=== PATIENT | male | born 2000 | race Caucasian/White ===

== ENCOUNTER 2024-03-07 11:13 | Emergency (ER) | payer OTHER, SELFPAY ==
[2024-03-07 11:24] VITALS: BP 164/89
--- NOTE | 2024-03-07 12:46 | ED.GENMED ---
History of Present Illness
General
Chief Complaint: Allergic Reaction
Time Seen by Provider: 03/07/24 12:46
History of Present Illness
History of Present Illness:
HPI: The patient presents with a rash. It primarily involves the torso. There is no airway compromise. There is no swelling. Mom was rather concerned about the etiology however she states he had a similar episode in the past and had negative
language specialist and dermatologic testing. He has had blood work that was unremarkable. He has had no fevers. He has had no night sweats. No tick bites.
EXAM:
GENERAL: Well appearing in no distress, there is no palpable lymphadenopathy
HEENT: Moist oral mucosa
CARDIOVASCULAR: No murmurs, normal heart rate, regular rhythm, No chest wall tenderness
PULMONARY: No respiratory distress, breath sounds are clear and equal
ABDOMEN: Soft with no peritoneal signs, no tenderness
NEUROLOGIC: Excellent strength all extremities, no coordination deficits
PSYCHIATRIC: Appropriate mental status, normal insight and judgement
EXTREMITIES: Nontender, no edema, moves all extremities equally
SKIN: There is an urticarial type of rash primarily involving the torso
TIME OF INITIAL ENCOUNTER: 1 PM
NUMBER AND COMPLEXITY OF PROBLEMS ADDRESSED AT THE ENCOUNTER
� Chronic conditions affecting care: The patient is otherwise healthy but mother reports frequent colds and fatigue (has had workup for this in the past)
� Acute Exacerbation and/or Progression of Chronic Illness:
� Differential Diagnosis includes:
AMOUNT AND/OR COMPLEXITY OF DATA TO BE REVIEWED AND ANALYZED
� I performed an independent evaluation of and my interpretation is:
EKG:
CT:
X-rays:
Laboratory Studies:
Other:
� Review of other/old records: I reviewed notes from prior visits regarding rash and was treated with steroids at that time
� Clinical information was obtained by an independent historian: I spoke to the mother at bedside
� Prescriptions/Medications Considered but not given:
� Further testing considered but not performed: No indication for blood work at this time, there is no petechial component, there is no bull's-eye type rash, he is afebrile
RISK OF COMPLICATIONS AND/OR MORBIDITY OR MORTALITY OF PATIENT MANAGEMENT
� Social determinants of health affecting care: Lives at home
� Discussion with other providers:
� Escalation of care including admission/observation vs risk of discharge considered: the patient is well-appearing. Other than hypertension his vital signs are unremarkable. The rash is not worrisome in appearance.
Past History
Past History
ED Past Medical History: None
ED Past Surgical History: Other (Left inguinal hernia repair)
Social History
Tobacco: Non-smoker
Alcohol: None
Drug: None
Personal: Single
Living: with family
Family History
Family History: Other (Noncontributory)
Phy Exam
Physical Exam
Physical Exam:
See HPI
Course
Orders/Labs/Results
Orders:
Orders
03/07/24 13:04
Diphenhydramine [Benadryl] 25 mg PO NOW STA
Famotidine [Pepcid] 20 mg PO NOW STA
Prednisone [Deltasone] 50 mg PO NOW STA
Vital Signs
Initial and Last Documented VS:
Initial Vital Signs
Temp Pulse Resp BP Pulse Ox
97.4 F 71 18 164/89 99
03/07/24 11:24 03/07/24 11:24 03/07/24 11:24 03/07/24 11:24 03/07/24 11:24
Last Documented Vital Signs
Temp Pulse Resp BP Pulse Ox
97.4 F 71 18 164/89 99
03/07/24 11:24 03/07/24 11:24 03/07/24 11:24 03/07/24 11:24 03/07/24 11:24
*Critical Care Note
Total Time (30-74mins, 75-104mins- exclusive of procedures): Not Applicable
ED Attending Note
-
Portions of this chart may have been created with voice recognition software.� Occasional wrong word or��sound alike� substitutions may have occurred due to the inherent limitations of voice recognition software.
Discharge Plan
Departure
Patient Disposition: Home (Routine Discharge)
Date of Disposition: 03/07/24
Time of Disposition: 13:04
Patient with high blood pressure during this ER visit?: Yes
Discharge Problem:
Allergic reaction
Instructions: Hives (DC)
Prescriptions:
New
prednisone 50 mg tablet
50 mg PO DAILY Qty: 4 0RF
No Action
oxycodone-acetaminophen 5 MG/325 MG tablet
1 - 2 tab PO Q4HPRN PRN (Reason: moderate to severe pain) Qty: 15 0RF
sulfamethoxazole-trimethoprim 1 TABLET tablet
1 tab PO BID Qty: 10 0RF
phenazopyridine 200 MG tablet
200 mg PO TID Qty: 6 0RF
sulfamethoxazole-trimethoprim 1 TABLET tablet
1 tab PO BID Qty: 14 0RF
Referrals:
Mu Lopez MD [Family Provider] -
Activity Restrictions/Additional Instructions:
The cause of your rash is unclear. I recommend resuming steroids. Next dose of steroids tomorrow I sent a prescription for steroids to your pharmacy. Continue [id number] Pepcid and Benadryl.
Discharge Date and Time
Print Language: [place]
[2024-03-07] MEDS: BENADRYL 25 MG PO (13:30)
[2024-03-07] MEDS: DELTASONE 50 MG PO (13:30)
[2024-03-07] MEDS: PEPCID 20 MG PO (13:30)
== END 2024-03-07 13:47 | disposition home or self-care (01) ==
LOC: EMR 11:13
PROVIDERS: EMERGENCY PHYSICIAN Emergency Medicine; FAMILY PHYSICIAN Internal Medicine
DX: T78.40XA Allergy, unspecified, initial encounter (principal); X58.XXXA Exposure to other specified factors, initial encounter; R03.0 Elevated blood-pressure reading, without diagnosis of hypertension
CPT/HCPCS: 99282

== ENCOUNTER 2024-12-04 09:26 | Emergency (ER) | payer OTHER, SELFPAY ==
[2024-12-04 09:38] VITALS: BP 141/86
--- NOTE | 2024-12-04 10:12 | ED.GENMED ---
History of Present Illness
General
Chief Complaint: Nose Bleed
Source: patient
Exam Limitations: none
Time Seen by Provider: 12/04/24 10:12
History of Present Illness
History of Present Illness:
See MDM
Past History
Past History
ED Past Medical History: None
ED Past Surgical History: Other (Left inguinal hernia repair)
Social History
Tobacco: Non-smoker
Alcohol: None
Drug: None
Personal: Single
Living: with family
Family History
Family History: Other (Noncontributory)
Phy Exam
Physical Exam
Physical Exam:
See MDM
Course
Vital Signs
Initial and Last Documented VS:
Initial Vital Signs
Temp Pulse Resp BP Pulse Ox
98.7 F 65 16 141/86 99
12/04/24 09:38 12/04/24 09:38 12/04/24 09:38 12/04/24 09:38 12/04/24 09:38
Last Documented Vital Signs
Temp Pulse Resp BP Pulse Ox
98.7 F 65 16 141/86 99
12/04/24 09:38 12/04/24 09:38 12/04/24 09:38 12/04/24 09:38 12/04/24 09:38
MDM/Problems Addressed
Differential Diagnosis Includes:
HPI and MDM Narrative:
24-year-old male presenting to the emergency department for ENT evaluation. Patient recent sinus surgery and developed nasal bleeding
Physical exam
General: Bloodsoaked nasal packing. Ambulated without difficulty
Problems Addressed including Acute and Chronic Conditions affecting care:
1. Nosebleed
Acuity: acute
Prognosis: stable
Details: ENT to evaluate
Updates
Patient packed by ENT. ENT indicating patient is stable to be discharged. Family feels comfortable this plan and understands return precautions. They were given verbal discharge instruction
Differential Diagnosis (but not limited to): Postsurgical bleeding, anterior nosebleed
Testing considered: Blood work
Drug therapy (if applicable): OTC meds, please see d/c instruction regarding Rx drugs
Amount and/or Complexity of Data Reviewed
Clinical info obtained from: ENT
External data reviewed: N/A
Labs I independently reviewed (but not limited to): N/A
Radiology: N/A
Pulse Ox: not hypoxic
EKG independently reviewed: N/A
Coat Repair Inspector: N/A
Critical Care: N/A
Risk of Complication:
Social Determinants of health: Good social support
Discussed with other providers: ENT
Escalation of Care includes Admit/Obs: After being observed in the Emergency Department, pt stable for discharge.
Occasional wrong word or 'sound a like' substitutions may have occurred due to the inherent limitations of voice recognition software. Read the chart carefully and recognize, using context, where substitutions have occurred.
*Critical Care Note
Total Time (30-74mins, 75-104mins- exclusive of procedures): Not Applicable
ED Attending Note
-
Portions of this chart may have been created with voice recognition software.� Occasional wrong word or��sound alike� substitutions may have occurred due to the inherent limitations of voice recognition software.
Discharge Plan
Departure
Patient Disposition: Home (Routine Discharge)
Patient with high blood pressure during this ER visit?: No
Discharge Problem:
Acute anterior epistaxis
Prescriptions:
No Action
oxycodone-acetaminophen 5 MG/325 MG tablet
1 - 2 tab PO Q4HPRN PRN (Reason: moderate to severe pain) Qty: 15 0RF
sulfamethoxazole-trimethoprim 1 TABLET tablet
1 tab PO BID Qty: 10 0RF
phenazopyridine 200 MG tablet
200 mg PO TID Qty: 6 0RF
sulfamethoxazole-trimethoprim 1 TABLET tablet
1 tab PO BID Qty: 14 0RF
prednisone 50 mg tablet
50 mg PO DAILY Qty: 4 0RF
Referrals:
UNKNOWN - PT NOT,INTERVIEWE [Family Provider] -
Interventions
Interventions:
*Risk Screen - Suicide Last Done: 12/04/24 09:40
*General Assessment Last Done: 12/04/24 10:20
*Neglect/Abuse Screening Last Done: 12/04/24 09:40
*ED- Fall Risk Assessment Last Done: 12/04/24 10:20
*ED COVID-19 Vaccine History Last Done: 12/04/24 10:20
ED-EENT Assessment Last Done: 12/04/24 10:20
Discharge Date and Time
Print Language: [place]
== END 2024-12-04 11:15 | disposition home or self-care (01) ==
LOC: EMR 09:26
PROVIDERS: EMERGENCY PHYSICIAN Student in an Organized Health Care Education/Training Program; OTHER PHYSICIAN Otolaryngology
DX: R04.0 Epistaxis (principal)
CPT/HCPCS: 99282; 30901